=== PATIENT | male | born 1935 | race Caucasian/White ===

== ENCOUNTER → 2017-11-06 | Outpatient (CLI) | payer MEDICARE ==
[~2017-11-06] MED LIST: FINA5TAB4 PO; HYDR-3237 PO; MULT-658 PO; OMEP-110 PO; PARO20TA4 PO; TAMS0.4C2 PO
== END | disposition home or self-care (01) ==
LOC: CFH 08:51
PROVIDERS: ATTEND Surgery
DX: Z02.9 Encounter for administrative examinations, unspecified (principal)

== ENCOUNTER 2017-11-15 10:45 | Day surgery (SDC) | payer MEDICARE ==
[~2017-11-15] VITALS: Ht 182.9 cm; Wt 65.0 kg
[~2017-11-15 10:45] MED LIST changes: -HYDR-3237 PO
[2017-11-15] MEDS ORDERED: BUPIVACAINE/PF 0.25% ONE (12:43)
[2017-11-15] MEDS ORDERED: EPINEPHRINE 1 MG/ML, 1ML ONE (12:43)
[2017-11-15] MEDS ORDERED: LACTATED RINGERS 1,000 ML IV SCH ×2 (13:19→19:00)
[2017-11-15 13:22] VITALS: BP 178/79
[2017-11-15] MEDS ORDERED: LORazepam 2 MG/ML, 1ML IVPush STA (13:50)
[2017-11-15] MEDS ORDERED: ONDANSETRON ODT 8 MG PO ONE (14:00)
[2017-11-15] MEDS ORDERED: FENTANYL PF 250 MCG/5ML ONE (14:48)
[2017-11-15] MEDS ORDERED: CEFAZOLIN 1,000 MG ONE (15:29)
[2017-11-15] MEDS ORDERED: SUCCINYLCHOLINE 20 MG/ML, 10ML ONE (15:29)
[2017-11-15] MEDS ORDERED: PROPOFOL 10 MG/ML, 20ML ONE (15:29)
[2017-11-15] MEDS ORDERED: LIDOCAINE 4%, 4 ML SYR/CANN TP ONE (15:29)
[2017-11-15 18:30] VITALS: BP 157/89
[2017-11-15] MEDS ORDERED: ONDANSETRON ODT 8 MG PO PRN (18:30)
[2017-11-15] MEDS ORDERED: MORPHINE SULFATE 4 MG/ML, 1ML IVPush PRN ×2 (18:30→19:00)
[2017-11-15] MEDS ORDERED: FENTANYL PF 100 MCG/2ML IV PRN (18:30)
[2017-11-15] MEDS ORDERED: ACETAMINOPHEN 325 MG TABLET PO PRN (18:30)
[2017-11-15] MEDS ORDERED: HYDROcodone/APAP 7.5-325MG/15ML UDC PO PRN ×2 (18:30→19:00)
[2017-11-15] MEDS ORDERED: PROMETHAZINE 25 MG/ML, 1ML IV PRN (18:30)
[2017-11-15] MEDS ORDERED: OXYcodone 5 MG/5 ML ORAL.SOL UDC PO PRN (18:30)
[2017-11-15] MEDS ORDERED: ONDANSETRON 2MG/ML, 2ML IVPush PRN (19:00)
[2017-11-15] MEDS ORDERED: HYDR-3237 PO (19:51)
[2017-11-15] MEDS ORDERED: PNEUMOCOCCAL 23 VACCINE IM-VACC ONE (20:00)
[2017-11-15] MEDS ORDERED: HYDROcodone/APAP 5/325 TABLET PO PRN (20:00)
[2017-11-16] MEDS ORDERED: OMEPRAZOLE 20 MG CAPSULE.DR PO SCH (07:30)
[2017-11-16] MEDS ORDERED: TAMSULOSIN 0.4 MG CAP.ER.24H PO SCH (09:00)
[2017-11-16] MEDS ORDERED: PAROXETINE 20 MG TABLET PO SCH (09:00)
[2017-11-16] MEDS ORDERED: FINASTERIDE 5 MG TABLET PO SCH (09:00)
[2017-11-16] MEDS ORDERED: MULTIVITAMIN 1 TABLET PO SCH (09:00)
== END 2017-11-15 20:30 | disposition home or self-care (01) ==
LOC: OUT 10:45 → 4NOR 18:17 → OUT 20:30
PROVIDERS: ATTEND Surgery
DX: C43.59 Malignant melanoma of other part of trunk (principal); K21.9 Gastro-esophageal reflux disease without esophagitis; N40.0 Benign prostatic hyperplasia without lower urinary tract symptoms
CPT/HCPCS: 21554; 38525; 38792; 88305; 88307; 90732; A9541; J0171; J0330; J0690; J2060; J2704; J3010; J3490; J7120; Q0162

== ENCOUNTER → 2017-12-07 | Outpatient (CLI) | payer MEDICARE ==
[~2017-12-07] MED LIST changes: +HYDR-3237 PO; +OMNIPAQUE 350 MG/ML, 150 ML BOTTLE ONE
== END | disposition home or self-care (01) ==
LOC: RAD 13:05
PROVIDERS: ATTEND Surgery
DX: G31.9 Degenerative disease of nervous system, unspecified (principal); I67.82 Cerebral ischemia; K80.20 Calculus of gallbladder without cholecystitis without obstruction; R91.1 Solitary pulmonary nodule; K44.9 Diaphragmatic hernia without obstruction or gangrene; R90.82 White matter disease, unspecified; C43.59 Malignant melanoma of other part of trunk
CPT/HCPCS: 70460; 71260; 74177; Q9967